=== PATIENT | female | born 1985 | race American Indian/Alaskan Native ===

== ENCOUNTER 2021-05-15 05:19 | Emergency (ER) | payer BC, MEDICAID ==
[2021-05-15 05:29] VITALS: BP 132/89
--- NOTE | 2021-05-15 06:15 | XRay Report ---
CHEST 2 VIEWS INDICATION / CLINICAL INFORMATION: Chest Pain. COMPARISON: None available. FINDINGS: SUPPORT DEVICES: None. HEART / MEDIASTINUM: No significant abnormality. LUNGS / PLEURA: No significant pulmonary abnormality. No significant pleural effusion. No pneumothora x. ADDITIONAL FINDINGS: No significant additional findings. IMPRESSION: 1. No acute abnormality of the chest. Signer Name: Armand George MD Signed: 05/15/2021 6:10 AM Workstation Name: [id number]
[2021-05-15 06:20] LABS: Basophils % (Auto) 0.5 % (0.0-1.8); Eosinophils % (Auto) 0.6 % (0.0-4.3); Hematocrit 35.4 % (30.3-42.9); Hemoglobin 11.9 gm/dl (10.1-14.3); Lymphocytes # (Auto) 1.2 K/mm3 (1.2-5.4); Lymphocytes % (Auto) 18.7 % (13.4-35.0); Mean Corpuscular HGB Conc 34 % (30-34); Mean Corpuscular Volume 91 fl (79-97); Monocytes # (Auto) 0.6 K/mm3 (0.0-0.8); Monocytes % (Auto) 10.1 % (0.0-7.3); Platelet Count 258 K/mm3 (140-440); Red Blood Count 3.87 M/mm3 (3.65-5.03); Red Cell Distribution Width 13.2 % (13.2-15.2)
[2021-05-15 06:43] LABS: Alanine Aminotransferase 9 units/L (7-56); Albumin 4.2 g/dL (3.9-5); BUN/Creatinine Ratio 11; Blood Urea Nitrogen 9 mg/dL (7-17); Calcium 9.3 mg/dL (8.4-10.2); Hemolysis Index 2
--- NOTE | 2021-05-15 10:39 | Electrocardiograph Report ---
[facility] Test Date: 2021-05-15 Test Time: 05:28:20 Pat Name: LENA WALTER Department: Room: Gender: F Design Tech: Yeison : 1985 Requested By: ED DOC Order Number: [id number] Reading MD: Patrice Barron Measurements Intervals [place] Rate: 91 P: 69 NC: 106 QRS: 60 QRSD: 90 T: 17 QT: 331 QTc: 407 Interpretive Statements Sinus rhythm Probable left atrial enlargement Probable left ventricular hypertrophy No previous ECG available for comparison Electronically Signed On 05-15-2021 10:39:03 EDT by Patrice Barron
--- NOTE | 2021-05-15 11:03 | Emergency Department Report ---
ED Chest Pain HPI - General Chief Complaint: Chest Pain Stated Complaint: CHEST PAINS NECK PAINS Time Seen by Provider: 05/15/21 10:38 Source: patient Mode of arrival: Ambulatory Limitations: No Limitations - History of Present Illness Initial Comments: 36-year-old -[place] female patient without past medical history presents with complaints of left-sided neck pain x3 days and sudden onset of sternal chest pain starting last night. Patient states the pain started in the left side of her neck after working out. She denies any difficulty moving her neck, fever/chills/sweats, headache, numbness/tingling/weakness in her limbs, or difficulty with ambulation. She rates her current chest pain as a 4/10 in severity and states it feels like a pressure. She says the pain occurs mostly with inhalation. She does admit to history of CHF and her sister. Patient also admits to an 8-hour car ride there and back 4 days ago from [place]. She denies any leg pain/swelling, history of DVT/PE/cancer, hemoptysis/cough, shortness of breath, or hormone use. -: Sudden - Related Data Previous Rx's Medication Instructions Recorded Last Taken Type Naproxen [Naprosyn TAB] 500 mg PO BID PRN #20 tablet 05/15/21 Unknown Rx methocarbamoL [Methocarbamol] 750 mg PO TID PRN #15 tablet 05/15/21 Unknown Rx Allergies Allergy/AdvReac Type Severity Reaction Status Date / Time glitter Allergy Itching Uncoded 05/15/21 05:23 Heart Score - HEART Score History: Slightly suspicious EKG: Normal Age: < 45 Risk factors: 1-2 risk factors Troponin: < normal limit HEART Score: 1 - EKG Read Time Time EKG Completed: 04:00 EKG Read Time: 04:02 ED Review of Systems ROS: Stated complaint: CHEST PAINS NECK PAINS Other details as noted in HPI Constitutional: denies: chills, fever, malaise Eyes: denies: vision change Respiratory: denies: cough, shortness of breath Cardiovascular: chest pain. denies: palpitations, edema, syncope Gastrointestinal: denies: abdominal pain Skin: denies: rash, lesions, change in color Neurological: denies: headache, numbness, paresthesias, abnormal gait Hematological/Lymphatic: denies: swollen glands ED Past Medical Hx - Past Medical History Previous Medical History?: No - Surgical History Past Surgical History?: No - Social History Smoking Status: Never Smoker Substance Use Type: None - Medications Home Medications: Home Medications Medication Instructions Recorded Confirmed Last Taken Type Naproxen [Naprosyn TAB] 500 mg PO BID PRN #20 tablet 05/15/21 Unknown Rx methocarbamoL [Methocarbamol] 750 mg PO TID PRN #15 tablet 05/15/21 Unknown Rx ED Physical Exam - General Limitations: No Limitations General appearance: alert, in no apparent distress - Head Head exam: Present: atraumatic, normocephalic - Eye Eye exam: Present: normal appearance. Absent: scleral icterus - Neck Neck exam: Present: tenderness (Tenderness to palpation noted to left trapezius muscle without vertebral tenderness or obvious deformity/step-offs noted), full ROM - Respiratory Respiratory exam: Present: normal lung sounds bilaterally, chest wall tenderness (Bilateral parasternal; no obvious deformities or skin changes noted). Absent: respiratory distress - Cardiovascular Cardiovascular Exam: Present: regular rate, normal rhythm - GI/Abdominal GI/Abdominal exam: Present: soft. Absent: distended, tenderness - Extremities Exam Extremities exam: Absent: calf tenderness (No swelling or tenderness to palpation noted and lower extremities bilaterally) - Back Exam Back exam: Present: normal inspection - Neurological Exam Neurological exam: Present: alert, oriented X3, normal gait. Absent: motor sensory deficit - Psychiatric Psychiatric exam: Present: normal affect, normal mood - Skin Skin exam: Present: warm, dry, intact, normal color. Absent: rash ED Course Vital Signs 05/15/21 05/15/21 05:25 12:56 Temperature 98.6 F Pulse Rate 111 H 88 Respiratory 18 16 Rate Blood Pressure 132/89 O2 Sat by Pulse 98 100 Oximetry ED Medical Decision Making - Lab Data Result diagrams: 05/15/21 06:01 05/15/21 06:01 - EKG Data EKG shows normal: sinus rhythm Rate: normal - EKG Data Interpretation: other (Probable left atrial enlargement and left ventricular enlargement) - Radiology Data Radiology results: report reviewed - Medical Decision Making 36-year-old -[place] female patient without past medical history presents with complaints of left-sided neck pain x3 days and sudden onset of sternal chest pain starting last night. Patient states the pain started in the left side of her neck after working out. She denies any difficulty moving her neck, fever/chills/sweats, headache, numbness/tingling/weakness in her limbs, or difficulty with ambulation. She rates her current chest pain as a 4/10 in severity and states it feels like a pressure. She says the pain occurs mostly with inhalation. She does admit to history of CHF and her sister. Patient also admits to an 8-hour car ride there and back 4 days ago from [place]. She denies any leg pain/swelling, history of DVT/PE/cancer, hemoptysis/cough, shortness of breath, or hormone use. No significant abnormalities noted on CBC, CMP or troponin x2. No acute abnormalities noted on EKG. Heart score = 1. Patient is PERC positive given recent long travel. Dimer is negative. Patient is well-appearing and her vitals are normal. Bilateral parasternal tenderness to palpation noted on exam. Chest and neck pain appear to be musculoskeletal in origin. Will treat with NSAIDs and icing. Recommend patient follows up with her primary care doctor within 3 to 5 days. Discussed findings in detail with patient and plan of care. She denies any further questions at this time. She is well-appearing, her vitals are normal, she is stable for discharge home. Strict return precautions were discussed in great detail with patient who verbalizes understanding. Critical care attestation.: If time is entered above; I have spent that time in minutes in the direct care of this critically ill patient, excluding procedure time. ED Disposition Clinical Impression: Neck pain, Other chest pain Disposition: DC-01 TO HOME OR SELFCARE Is pt being admited?: No Condition: Stable Instructions: Cervical Sprain, Nonspecific Chest Pain, Adult, [id number], Costochondritis Prescriptions: methocarbamoL [Methocarbamol] 750 mg PO TID PRN #15 tablet PRN Reason: muscle spasm/tightness Naproxen [Naprosyn TAB] 500 mg PO BID PRN #20 tablet PRN Reason: pain Referrals: SCOTT MENA MD [Primary Care Provider] - 2-3 Days Forms: Work/School Release Form(ED)
[2021-05-15] MEDS ORDERED: IBUPROFEN 800 MG TAB PO STA (12:40)
[2021-05-15] MEDS ORDERED: ACETAMINOPHEN 500 MG TAB PO STA (12:40)
== END 2021-05-15 12:57 | disposition home or self-care (01) ==
LOC: ED 05:19
DX: M54.2 Cervicalgia (principal); R07.89 Other chest pain
CPT/HCPCS: 36415; 71046; 80053; 84484; 84703; 85025; 85379; 93005; 99283

== ENCOUNTER 2021-05-24 04:03 | Emergency (ER) | payer BC, MEDICAID ==
--- NOTE | 2021-05-24 05:17 | XRay Report ---
CHEST 2 VIEWS INDICATION / CLINICAL INFORMATION: SOB. COMPARISON: 05/15/21 FINDINGS: SUPPORT DEVICES: None. HEART / MEDIASTINUM: No significant abnormality. LUNGS / PLEURA: Interval development of subtle patchy bilateral pulmonary opacities. No pneumothorax. ADDITIONAL FINDINGS: No significant additional findings. IMPRESSION: 1. Possible early patchy bilateral pneumonia. Atypical/viral pneumonia should be considered. Signer Name: Isabel Gregory MD Signed: 05/24/2021 5:13 AM Workstation Name: [id number]
[2021-05-24] MEDS ORDERED: SODIUM CHLORIDE 0.9% 1000 ML 1,000 ML IV ONE (05:21)
[2021-05-24] MEDS ORDERED: cefTRIAXone/NS 1 GM/50 ML 1 GM/50 ML BAG IV ONE (05:21)
[2021-05-24] MEDS ORDERED: ONDANSETRON 4 MG/2 ML INJ IV ONE (05:21)
[2021-05-24] MEDS ORDERED: ACETAMINOPHEN 500 MG TAB PO ONE (05:21)
--- NOTE | 2021-05-24 05:39 | Emergency Department Report ---
ED General Adult HPI - General Chief complaint: Dyspnea/Respdistress Stated complaint: SOB Time Seen by Provider: 05/24/21 05:15 Source: patient Mode of arrival: Ambulatory Limitations: No Limitations - History of Present Illness Initial comments: Patient 36-year-old presents for cough fevers chills for the past 10 days. Patient works as a [employer] notes possible pos covid contacts. Symptoms are exacerbated by activity ,symptoms are relieved by nothing tried. pt is tolerating po itake without n/v at this time., pt denies CP, fever, or chills at this time, pt does endose generalized malaise . Symptoms rated as 3/10. pt denies SOB at this time. Severity scale (0 -10): 10 - Related Data Previous Rx's Medication Instructions Recorded Last Taken Type Naproxen [Naprosyn TAB] 500 mg PO BID PRN #20 tablet 05/15/21 Unknown Rx methocarbamoL [Methocarbamol] 750 mg PO TID PRN #15 tablet 05/15/21 Unknown Rx Albuterol Mdi (or & Nicu Only) 2 puff IH QID PRN #8.5 gram 05/24/21 Unknown Rx [ProAir HFA Inhaler] Azithromycin 500 mg PO DAILY 5 Days #5 tablet 05/24/21 Unknown Rx dexAMETHasone [Decadron] 4 mg PO BID 3 Days #6 tablet 05/24/21 Unknown Rx Allergies Allergy/AdvReac Type Severity Reaction Status Date / Time glitter Allergy Itching Uncoded 05/15/21 05:23 ED Review of Systems ROS: Stated complaint: SOB Other details as noted in HPI Constitutional: malaise. denies: chills, fever Eyes: denies: eye pain, eye discharge, vision change ENT: denies: ear pain, throat pain Respiratory: cough, shortness of breath. denies: wheezing Cardiovascular: denies: chest pain, palpitations Endocrine: no symptoms reported Gastrointestinal: nausea. denies: abdominal pain, vomiting, diarrhea, constipation Genitourinary: denies: urgency, dysuria, frequency, discharge, dyspareunia Musculoskeletal: back pain Skin: as per HPI Neurological: headache. denies: weakness, numbness, paresthesias, confusion, vertigo Psychiatric: denies: anxiety, depression Hematological/Lymphatic: denies: easy bleeding, easy bruising ED Past Medical Hx - Past Medical History Previous Medical History?: No - Social History Smoking Status: Never Smoker Substance Use Type: Alcohol - Medications Home Medications: Home Medications Medication Instructions Recorded Confirmed Last Taken Type Naproxen [Naprosyn TAB] 500 mg PO BID PRN #20 tablet 05/15/21 Unknown Rx methocarbamoL [Methocarbamol] 750 mg PO TID PRN #15 tablet 05/15/21 Unknown Rx Albuterol Mdi (or & Nicu Only) 2 puff IH QID PRN #8.5 gram 05/24/21 Unknown Rx [ProAir HFA Inhaler] Azithromycin 500 mg PO DAILY 5 Days #5 tablet 05/24/21 Unknown Rx dexAMETHasone [Decadron] 4 mg PO BID 3 Days #6 tablet 05/24/21 Unknown Rx ED Physical Exam - General Limitations: No Limitations General appearance: alert, appears intoxicated - Head Head exam: Present: normocephalic, normal inspection - Eye Eye exam: Present: PERRL, EOMI Pupils: Present: normal accommodation - ENT ENT exam: Present: normal orophraynx, mucous membranes moist, TM's normal bilaterally, normal external ear exam - Neck Neck exam: Present: normal inspection, full ROM. Absent: tenderness, meningismus, lymphadenopathy, thyromegaly - Respiratory Respiratory exam: Present: normal lung sounds bilaterally, chest wall tenderness. Absent: respiratory distress, wheezes, stridor - Cardiovascular Cardiovascular Exam: Present: normal rhythm, tachycardia, normal heart sounds. Absent: systolic murmur, diastolic murmur, rubs, gallop - GI/Abdominal GI/Abdominal exam: Present: soft, normal bowel sounds. Absent: distended, tenderness, guarding, rebound, rigid, bruit, hernia - Rectal Rectal exam: Present: deferred - Extremities Exam Extremities exam: Present: normal inspection, full ROM, normal capillary refill. Absent: tenderness, pedal edema - Back Exam Back exam: Present: normal inspection, full ROM. Absent: CVA tenderness (R), CVA tenderness (L) - Neurological Exam Neurological exam: Present: alert, oriented X3, CN II-XII intact, normal gait, reflexes normal - Psychiatric Psychiatric exam: Present: normal affect, normal mood - Skin Skin exam: Present: warm, dry, intact, normal color. Absent: rash ED Course Vital Signs 05/24/21 04:17 Temperature 99.6 F Pulse Rate 117 H Respiratory 18 Rate Blood Pressure 111/77 [Right] O2 Sat by Pulse 99 Oximetry ED Medical Decision Making - Lab Data Labs 05/24/21 05:31 Lactic Acid 1.70 - Radiology Data Radiology results: report reviewed, image reviewed cc: VIRIDIANA BRENNAN NP Fluoro Time In Minutes: CHEST 2 VIEWS INDICATION / CLINICAL INFORMATION: SOB. COMPARISON: 05/15/21 FINDINGS: SUPPORT DEVICES: None. HEART / MEDIASTINUM: No significant abnormality. LUNGS / PLEURA: Interval development of subtle patchy bilateral pulmonary opacities. No pneumothorax. ADDITIONAL FINDINGS: No significant additional findings. IMPRESSION: 1. Possible early patchy bilateral pneumonia. Atypical/viral pneumonia should be considered. Signer Name: Isabel Gregory MD Signed: 05/24/2021 5:13 AM Workstation Name: [id number] Transcribed By: DT Dictated By: Cuong Gregory MD Electronically Authenticated By: Cuong Gregory MD Signed Date/Time: 05/24/21512 DD/ 1 TD/TT: - Medical Decision Making Chest x-ray small bilateral patchy infiltrate, symptoms are improved with medications given in ED. Plan DC to home with prescriptions and PUI precautions. pt will follow up with pcp in 2-3 days , return to emergency if symptoms worsen. pt verbalized agreement and understanding of discharge plan. Critical care attestation.: If time is entered above; I have spent that time in minutes in the direct care of this critically ill patient, excluding procedure time. ED Disposition Clinical Impression: Person under investigation for COVID-19 CAP (community acquired pneumonia) Qualifiers: Laterality: unspecified laterality Qualified Code(s): J18.9 - Pneumonia, unspecified organism Disposition: DC-01 TO HOME OR SELFCARE Is pt being admited?: No Does the pt Need Aspirin: No Condition: Stable Instructions: COVID-19: How to Protect Yourself and Others - CDC, Community- Acquired Pneumonia, Adult, [id number], Bacterial Pneumonia (ED) Additional Instructions: Take medications as prescribed, quarantine as directed. Follow-up with your primary care doctor as directed in 2-3 days. Return to emergency if symptoms worsen. Prescriptions: Azithromycin 500 mg PO DAILY 5 Days #5 tablet dexAMETHasone [Decadron] 4 mg PO BID 3 Days #6 tablet Albuterol Mdi (or & Nicu Only) [ProAir HFA Inhaler] 2 puff IH QID PRN #8.5 gram PRN Reason: Shortness Of Breath Referrals: SCOTT MENA MD [Primary Care Provider] - 3-5 Days Forms: Work/School Release Form(ED)
[2021-05-24 07:04] LABS: Hematocrit 35.2 % (30.3-42.9); Hemoglobin 11.9 gm/dl (10.1-14.3); Mean Corpuscular HGB Conc 34 % (30-34); Mean Corpuscular Volume 89 fl (79-97); Platelet Count 209 K/mm3 (140-440); Red Blood Count 3.94 M/mm3 (3.65-5.03); Red Cell Distribution Width 12.9 % (13.2-15.2)
[2021-05-24 07:17] LABS: BUN/Creatinine Ratio 9; Blood Urea Nitrogen 7 mg/dL (7-17); Calcium 8.1 mg/dL (8.4-10.2); Hemolysis Index 31
[2021-05-24 08:07] VITALS: BP 113/74
[2021-05-24 13:50] LABS: Band Neutrophils # (Manual) 0.3 K/mm3; Platelet Estimate Consistent w Auto; RBC Morphology Normal; Total Cells Counted 100
== END 2021-05-24 08:07 | disposition home or self-care (01) ==
LOC: ED 04:03
DX: J18.9 Pneumonia, unspecified organism (principal); Z20.822 Contact with and (suspected) exposure to COVID-19; Z91.048 Other nonmedicinal substance allergy status
CPT/HCPCS: 36415; 71046; 80048; 82140; 85007; 85025; 87040; 96365; 96375; 99284; J0696; J2405; J7030; 96361

== ENCOUNTER 2022-04-03 18:40 | Emergency (ER) | payer BC, MEDICAID ==
[2022-04-03 19:32] VITALS: BP 147/105
--- NOTE | 2022-04-04 09:07 | Electrocardiograph Report ---
[facility] Test Date: 2022-04-03 Test Time: 19:33:46 Pat Name: LENA WALTER Department: Room: Gender: F Flying Ii Instructor: MELISSA : 1985 Requested By: ED DOC Order Number: [id number] Reading MD: Mundo Butler Measurements Intervals [place] Rate: 91 P: 71 NE: 108 QRS: 57 QRSD: 87 T: 21 QT: 349 QTc: 431 Interpretive Statements Sinus rhythm Consider left ventricular hypertrophy Compared to ECG 05/15/2021 05:28:20 No significant changes Electronically Signed On 04-04-2022 9:06:35 EDT by Mundo Butler
== END 2022-04-04 05:10 | disposition left against medical advice (07) ==
LOC: ED 18:40
DX: R07.89 Other chest pain (principal); Z53.21 Procedure and treatment not carried out due to patient leaving prior to being seen by health care provider
CPT/HCPCS: 93005